=== PATIENT | female | born 1970 | race American Indian/Alaskan Native ===

== ENCOUNTER 2021-02-02 03:25 | Emergency (ER) | payer SELFPAY ==
[2021-02-02] MEDS ORDERED: oxyCODONE /ACETAMINOPHEN 5-325MG TAB PO ONE (06:21)
--- NOTE | 2021-02-02 06:27 | Emergency Department Report ---
ED ENT HPI - General Chief complaint: Dental/Oral Stated complaint: TOOTHACHE Time Seen by Provider: 02/02/21 06:18 Source: patient Mode of arrival: Ambulatory Limitations: No Limitations - History of Present Illness Initial comments: 50-year-old [place] female with past medical history of a significantly low tooth presents emerge department complaining of a spontaneous onset of dental pain. Pain is dull and throbbing worse with eating and palpation. There is no nausea, no vomiting, no fever, chills, sweats but no hemoptysis no hematemesis hematochezia, no odynophagia or dysphagia. No chest pain or palpitations. MD complaint: tooth pain -: Gradual Location: tooth # 1 - Significant erosion to this region with dental pain and is adjacent gingival erythema. Quality: dull Consistency: constant Improves with: none Worsens with: swallowing, eating, movement Associated Symptoms: gum swelling, toothache - Related Data Previous Rx's Medication Instructions Recorded Last Taken Type Amoxicillin [Amoxicillin TAB] 875 mg PO BID #20 tablet 02/02/21 Unknown Rx Chlorhexidine Mouthwash [Peridex] 15 ml MM BID #1 bottle 02/02/21 Unknown Rx Lidocaine Viscous 2% 5 ml MM Q3H PRN #120 udc 02/02/21 Unknown Rx Allergies Allergy/AdvReac Type Severity Reaction Status Date / Time No Known Allergies Allergy Unverified 02/02/21 03:53 ED Dental HPI - General Chief complaint: Dental/Oral Stated complaint: TOOTHACHE Time Seen by Provider: 02/02/21 06:18 Source: patient Mode of arrival: Ambulatory Limitations: No Limitations - Related Data Previous Rx's Medication Instructions Recorded Last Taken Type Amoxicillin [Amoxicillin TAB] 875 mg PO BID #20 tablet 02/02/21 Unknown Rx Chlorhexidine Mouthwash [Peridex] 15 ml MM BID #1 bottle 02/02/21 Unknown Rx Lidocaine Viscous 2% 5 ml MM Q3H PRN #120 udc 02/02/21 Unknown Rx Allergies Allergy/AdvReac Type Severity Reaction Status Date / Time No Known Allergies Allergy Unverified 02/02/21 03:53 ED Review of Systems ROS: Stated complaint: TOOTHACHE Other details as noted in HPI Comment: All other systems reviewed and negative ED Past Medical Hx - Past Medical History Previous Medical History?: No - Surgical History Past Surgical History?: No - Medications Home Medications: Home Medications Medication Instructions Recorded Confirmed Last Taken Type Amoxicillin [Amoxicillin TAB] 875 mg PO BID #20 tablet 02/02/21 Unknown Rx Chlorhexidine Mouthwash [Peridex] 15 ml MM BID #1 bottle 02/02/21 Unknown Rx Lidocaine Viscous 2% 5 ml MM Q3H PRN #120 udc 02/02/21 Unknown Rx ED Physical Exam - General Limitations: No Limitations General appearance: alert, in no apparent distress - Head Head exam: Present: atraumatic, normocephalic - Eye Eye exam: Present: normal appearance, PERRL, EOMI - ENT ENT exam: Present: normal exam, mucous membranes moist, TM's normal bilaterally, other (Airway patent tongue and uvula midline) - Expanded ENT Exam Expanded 1 - Dental Tenderness, Other (Significant in the dental erosion with some adjacent gingival erythema.) Throat exam: Negative: R peritonsillar mass, L peritonsillar mass - Neck Neck exam: Present: normal inspection - Respiratory Respiratory exam: Present: normal lung sounds bilaterally. Absent: respiratory distress, rhonchi, stridor, accessory muscle use, decreased breath sounds, prolonged expiratory - Cardiovascular Cardiovascular Exam: Present: regular rate, normal rhythm. Absent: systolic murmur, diastolic murmur, rubs, gallop - GI/Abdominal GI/Abdominal exam: Present: soft, normal bowel sounds. Absent: guarding, rebound - Extremities Exam Extremities exam: Present: normal inspection - Back Exam Back exam: Present: normal inspection - Neurological Exam Neurological exam: Present: alert, oriented X3 - Psychiatric Psychiatric exam: Present: normal affect, normal mood - Skin Skin exam: Present: warm, dry, intact, normal color. Absent: rash ED Course Vital Signs 02/02/21 03:49 Temperature 97.8 F Pulse Rate 77 Respiratory 18 Rate Blood Pressure 153/91 O2 Sat by Pulse 100 Oximetry Critical care attestation.: If time is entered above; I have spent that time in minutes in the direct care of this critically ill patient, excluding procedure time. ED Disposition Clinical Impression: Infected dental caries Disposition: HOME / SELF CARE / HOMELESS Is pt being admited?: No Does the pt Need Aspirin: No Condition: Stable Instructions: Dental Abscess, [id number], Preventive Dental Care, Adult, Dental Sealants Referrals: [facility] [Outside] - 3-5 Days
[2021-02-02 07:18] VITALS: BP 126/75
== END 2021-02-02 07:18 | disposition home or self-care (01) ==
LOC: ED 03:25
DX: K02.9 Dental caries, unspecified (principal); Z79.899 Other long term (current) drug therapy
CPT/HCPCS: 99282

== ENCOUNTER 2021-05-22 22:21 | Emergency (ER) | payer SELFPAY ==
[2021-05-22 22:36] VITALS: BP 142/94
[2021-05-23] MEDS ORDERED: IBUPROFEN 600 MG TAB PO ONE (01:59)
[2021-05-23] MEDS ORDERED: ACETAMINOPHEN 325 MG TAB PO ONE (01:59)
[2021-05-23 02:54] LABS: Hematocrit 35.8 % (30.3-42.9); Hemoglobin 11.8 gm/dl (10.1-14.3); Mean Corpuscular HGB Conc 33 % (30-34); Mean Corpuscular Volume 86 fl (79-97); Platelet Count 266 K/mm3 (140-440); Red Blood Count 4.15 M/mm3 (3.65-5.03); Red Cell Distribution Width 14.7 % (13.2-15.2)
[2021-05-23] MEDS ORDERED: medroxyPROGESTERone ACETATE 5 MG TAB PO ONE (02:59)
[2021-05-23 03:04] LABS: Alanine Aminotransferase 11 units/L (7-56); Albumin 4.5 g/dL (3.9-5); Blood Urea Nitrogen 8 mg/dL (7-17); Calcium 9.9 mg/dL (8.4-10.2); Hemolysis Index 0
[2021-05-23 03:43] LABS: BUN/Creatinine Ratio 20
[2021-05-23 04:23] LABS: Bilirubin,Urine NEG (Negative); Blood,Urine MOD (Negative); Color,Urine Yellow (Yellow); Mucus,Urine 1+ /HPF; Protein,Urine <15 mg/dL mg/dL (Negative); Urobilinogen,Urine < 2.0 mg/dL (<2.0)
--- NOTE | 2021-05-23 04:55 | Emergency Department Report ---
ED Female HPI - General Chief complaint: Vaginal Bleeding Stated complaint: HEAVY VAGINAL BLEEDING Source: EMS Mode of arrival: Stretcher Limitations: No Limitations - History of Present Illness Initial comments: Patient is a 50-year-old -Gabonese female with a history of chronic iron deficiency anemia and uterine fibroids with chronic menorrhagia presents to the ED with complaint of acute onset persistent suprapubic pain and heavy vaginal bleeding for the last 3 days. Patient states that part of in the ED she was a large blood clots and presented to the ED for evaluation. Patient states that she was supposed to have total hysterectomy about 10 years ago but did not have insurance or cardiology. Patient states that she also takes iron tablets daily but ran out of the medications about a week ago. Patient denies dizziness, syncope, fever, chills, chest pain, shortness of breath, nausea vomiting, dysuria, urine frequency urgency, headache, lightheadedness MD Complaint: vaginal bleeding, pelvic pain, other (Severe dysmenorrhea) -: Sudden, days(s) (3) Location: suprapubic, other (Vaginal) Radiation: non-radiating Severity: severe Severity scale (0 -10): 8 Quality: cramping, sharp Consistency: constant Improves with: none Worsens with: menstrual period Are you Now?: No Last Menstrual Period: 05/21/21 EDC: 02/25/22 Associated Symptoms: denies other symptoms, vaginal bleeding, abdominal pain (Suprapubic pain). denies: vaginal discharge, nausea/vomiting, fever/chills, headaches, loss of appetite, dysuria, rash, shortness of breath, syncope, weakness - Related Data Sexually active: Yes Previous Rx's Medication Instructions Recorded Last Taken Type Amoxicillin [Amoxicillin TAB] 875 mg PO BID #20 tablet 02/02/21 Unknown Rx Chlorhexidine Mouthwash [Peridex] 15 ml MM BID #1 bottle 02/02/21 Unknown Rx Lidocaine Viscous 2% 5 ml MM Q3H PRN #120 udc 02/02/21 Unknown Rx Ferrous Sulfate [Ferrous Sulfate 324 mg PO DAILY #60 tab 05/23/21 Unknown Rx 324 MG] Ibuprofen [Motrin] 600 mg PO Q8H PRN #30 tablet 05/23/21 Unknown Rx Ondansetron [Zofran Odt] 4 mg PO Q8HR PRN #20 tab.rapdis 05/23/21 Unknown Rx Allergies Allergy/AdvReac Type Severity Reaction Status Date / Time No Known Allergies Allergy Unverified 02/02/21 03:53 ED Review of Systems ROS: Stated complaint: HEAVY VAGINAL BLEEDING Other details as noted in HPI Constitutional: denies: chills, fever Eyes: denies: eye pain, eye discharge, vision change ENT: denies: ear pain, throat pain Respiratory: denies: cough, shortness of breath, wheezing Cardiovascular: denies: chest pain, palpitations Endocrine: no symptoms reported Gastrointestinal: abdominal pain (Suprapubic pain). denies: nausea, diarrhea Genitourinary: abnormal menses (Heavy vaginal bleeding). denies: urgency, dysuria, discharge Musculoskeletal: denies: back pain, joint swelling, arthralgia Skin: denies: rash, lesions Neurological: denies: headache, weakness, paresthesias Psychiatric: denies: anxiety, depression Hematological/Lymphatic: denies: easy bleeding, easy bruising ED Past Medical Hx - Social History Smoking Status: Current Every Day Smoker Substance Use Type: Alcohol - Medications Home Medications: Home Medications Medication Instructions Recorded Confirmed Last Taken Type Amoxicillin [Amoxicillin TAB] 875 mg PO BID #20 tablet 02/02/21 Unknown Rx Chlorhexidine Mouthwash [Peridex] 15 ml MM BID #1 bottle 02/02/21 Unknown Rx Lidocaine Viscous 2% 5 ml MM Q3H PRN #120 udc 02/02/21 Unknown Rx Ferrous Sulfate [Ferrous Sulfate 324 mg PO DAILY #60 tab 05/23/21 Unknown Rx 324 MG] Ibuprofen [Motrin] 600 mg PO Q8H PRN #30 tablet 05/23/21 Unknown Rx Ondansetron [Zofran Odt] 4 mg PO Q8HR PRN #20 tab.rapdis 05/23/21 Unknown Rx ED Physical Exam - General Limitations: No Limitations General appearance: alert, in no apparent distress - Head Head exam: Present: atraumatic, normocephalic, normal inspection - Eye Eye exam: Present: normal appearance, PERRL, EOMI Pupils: Present: normal accommodation - ENT ENT exam: Present: normal exam, normal orophraynx, mucous membranes moist, TM's normal bilaterally, normal external ear exam - Neck Neck exam: Present: normal inspection, full ROM - Respiratory Respiratory exam: Present: normal lung sounds bilaterally. Absent: respiratory distress, wheezes, rales, stridor, chest wall tenderness, accessory muscle use, prolonged expiratory - Cardiovascular Cardiovascular Exam: Present: regular rate, normal rhythm, normal heart sounds. Absent: systolic murmur, diastolic murmur, rubs, gallop - GI/Abdominal GI/Abdominal exam: Present: soft, tenderness (Palpable mild suprapubic tenderness), normal bowel sounds. Absent: guarding, rebound, hyperactive bowel sounds, hypoactive bowel sounds, organomegaly, mass - Bi-manual exam: Present: other (Pelvic exam deferred at this time, patient request) - Extremities Exam Extremities exam: Present: normal inspection, full ROM, normal capillary refill - Back Exam Back exam: Present: normal inspection, full ROM. Absent: tenderness, CVA tenderness (R), CVA tenderness (L), muscle spasm, paraspinal tenderness, vertebral tenderness - Neurological Exam Neurological exam: Present: alert, oriented X3, CN II-XII intact, normal gait, reflexes normal - Psychiatric Psychiatric exam: Present: normal affect, normal mood - Skin Skin exam: Present: warm, dry, intact, normal color. Absent: rash ED Course Vital Signs 05/22/21 05/23/21 22:32 02:28 Pulse Rate 86 Respiratory 18 16 Rate Blood Pressure 142/94 O2 Sat by Pulse 100 Oximetry ED Medical Decision Making - Lab Data Result diagrams: 05/23/21 02:06 05/23/21 02:06 - Medical Decision Making This is a 50-year-old -Gabonese female with a history of chronic iron deficiency anemia and uterine fibroids with chronic menorrhagia presents to the ED with complaint of acute onset persistent suprapubic pain and heavy vaginal bleeding for the last 3 days. Patient states that part of in the ED she was a large blood clots and presented to the ED for evaluation. Patient states that she was supposed to have total hysterectomy about 10 years ago but did not have insurance or cardiology. Patient states that she also takes iron tablets daily but ran out of the medications about a week ago. In the ED, patient is alert and oriented x3 and is not in any distress. Patient is hemodynamically stable. Patient was treated for pain in the ED. Lab test results were reviewed and are all nonactionable. On reevaluation, patient's pain is well controlled medication. Patient will discharge home on medications and advised to follow-up with her [facility] physician in 5 to 7 days for reevaluation or return to the ED immediately if symptoms get worse. - Differential Diagnosis Menorrhagia; anemia; UTI; severe dysmenorrhea; uterine fibroids Critical care attestation.: If time is entered above; I have spent that time in minutes in the direct care of this critically ill patient, excluding procedure time. ED Disposition Clinical Impression: Dysfunctional uterine bleeding, Menorrhagia, premenopausal Uterine fibroid Qualifiers: Uterine leiomyoma location: unspecified location Qualified Code(s): D25.9 - Leiomyoma of uterus, unspecified Disposition: HOME / SELF CARE / HOMELESS Is pt being admited?: No Does the pt Need Aspirin: No Condition: Stable Instructions: Uterine Fibroids, Aaxy-[id number]-[id number], Menorrhagia, [id number]-Igfd, Abnormal Uterine Bleeding, Imdr-[id number] Additional Instructions: All lab test results were reviewed and are all nonactionable. Therefore take medication with food, drink plenty fluids and follow-up with your [facility] physician in 7 to 10 days for reevaluation. Return to the ED immediately if symptoms get worse. Prescriptions: Ferrous Sulfate [Ferrous Sulfate 324 MG] 324 mg PO DAILY #60 tab Ibuprofen [Motrin] 600 mg PO Q8H PRN #30 tablet PRN Reason: Pain Ondansetron [Zofran Odt] 4 mg PO Q8HR PRN #20 tab.rapdis PRN Reason: Nausea Referrals: ONESIMO BABIN MD [Staff Physician] - 7-10 days Time of Disposition: 04:57 Print Language: LUXEMBOURGISH
== END 2021-05-23 05:32 | disposition home or self-care (01) ==
LOC: ED 22:21
DX: D25.9 Leiomyoma of uterus, unspecified (principal); N92.0 Excessive and frequent menstruation with regular cycle; N92.4 Excessive bleeding in the premenopausal period; F17.200 Nicotine dependence, unspecified, uncomplicated; Z72.89 Other problems related to lifestyle
CPT/HCPCS: 36415; 80053; 81001; 84702; 85027; 99283; 99284

== ENCOUNTER 2021-10-19 14:47 | Emergency (ER) | payer SELFPAY ==
--- NOTE | 2021-10-19 15:57 | Event Note ---
ED Screening Note ED Screening Note: SENT TO ER BY PCP HGB 6.4 CP/SOB/WEAKNESS HX UTERINE FIBROIDS TOLD TO GET HYSTERECTOMY 7 YEARS AGO AND DID NOT LMP 1 W AGO PMH ANXIETY DEPRESSION FIBROIDS TUBAL BENIGN BREAST TUMOR REMOVAL CHILD This initial assessment/diagnostic orders/clinical plan/treatment(s) is/are subject to change based on patients health status, clinical progression and re- assessment by fellow clinical providers in the ED. Further treatment and workup at subsequent clinical providers discretion. Patient/guardian urged not to elope from the ED as their condition may be serious if not clinically assessed and managed. Initial orders include: LABS EKG LIKELY RBC RO DEMAND ISCHEMIA
--- NOTE | 2021-10-19 16:12 | Emergency Department Report ---
ED General Adult HPI - General Chief complaint: Recheck/Abnormal Lab/Rx Stated complaint: BLD TRANSFUSION Time Seen by Provider: 10/19/21 16:02 Source: patient Mode of arrival: Ambulatory Limitations: No Limitations - History of Present Illness Initial comments: 50-year-old female with a past medical history of anemia, uterine fibroids, dysfunctional bleeding secondary to uterine fibroids, tubal ligation, anxiety, depression, and benign breast tumor removal as a child presents to the hospital with complaints of anemia. Patient states she has been having progressive worsening dyspnea on exertion, lightheadedness, and had a syncopal episode last night. Patient also experiencing cravings for ice and starch. She went to urgent care for evaluation and states her hemoglobin was 6.4 and therefore she was for to the ER for blood transfusion. Patient has not been taking iron tablets currently because she did not have a prescription and feels that the [id number] medication does not work. It was recommended that she had a hysterectomy 7 years ago but she did not have insurance therefore she was unable to follow-up for definitive treatment. Patient last had 7-day menstrual cycle that stopped 1 week ago. She does not currently have vaginal bleeding Severity scale (0 -10): 0 - Related Data Previous Rx's Medication Instructions Recorded Last Taken Type Ferrous Sulfate [Ferrous Sulfate 324 mg PO DAILY #30 tab 10/19/21 Unknown Rx 324 MG] Allergies Allergy/AdvReac Type Severity Reaction Status Date / Time No Known Allergies Allergy Verified 10/19/21 15:49 ED Review of Systems ROS: Stated complaint: BLD TRANSFUSION Other details as noted in HPI Comment: All other systems reviewed and negative ED Past Medical Hx - Social History Smoking Status: Current Every Day Smoker Substance Use Type: Alcohol - Medications Home Medications: Home Medications Medication Instructions Recorded Confirmed Last Taken Type Ferrous Sulfate [Ferrous Sulfate 324 mg PO DAILY #30 tab 10/19/21 Unknown Rx 324 MG] ED Physical Exam - General Limitations: No Limitations - Other Other exam information: Myeloma general: No acute distress Head: Atraumatic Eyes: normal appearance ENT: Moist mucous membranes Neck: Normal appearance, no midline tenderness Chest: Clear to auscultation bilaterally CV: Regular rate and rhythm Abdomen: Soft, normal bowel sounds, nontender, nondistended, no rebound or guarding Back: Normal inspection Extremity: Normal inspection, full range of motion Neuro: Alert O x 3, no facial asymmetry, speech clear, no gross motor sensory deficit Psych: Appropriate behavior Skin: No rash ED Course Vital Signs 10/19/21 10/19/21 10/19/21 15:44 16:45 18:39 Temperature 98.5 F Pulse Rate 99 H 70 Respiratory 16 13 Rate Blood Pressure Blood Pressure 133/88 [Right] O2 Sat by Pulse 100 100 100 Oximetry 10/19/21 10/19/21 10/19/21 18:40 18:45 18:46 Temperature 98.9 F 98.9 F Pulse Rate 71 67 74 Respiratory 13 12 12 Rate Blood Pressure 111/60 121/54 121/54 Blood Pressure [Right] O2 Sat by Pulse 100 100 100 Oximetry 10/19/21 10/19/21 10/19/21 18:51 19:00 19:25 Temperature 99.2 F 99.3 F 98.3 F Pulse Rate 82 76 75 Respiratory 16 15 12 Rate Blood Pressure 126/48 126/48 Blood Pressure 120/49 [Right] O2 Sat by Pulse 100 100 100 Oximetry 10/19/21 10/19/21 10/19/21 19:30 20:00 21:00 Temperature 98.3 F Pulse Rate 75 73 73 Respiratory 12 18 15 Rate Blood Pressure 119/70 108/62 Blood Pressure 120/49 [Right] O2 Sat by Pulse 100 100 100 Oximetry - Reevaluation(s) Reevaluation #1: 10/19/21 22:39 To manage evaluation the patient informed her hemoglobin and that we would need to believe her blood transfusion and discharged on iron pills. Patient initially seemed agreeable. Patient has asked to speak to me and I relayed the message to the nurse that she will be getting a repeat hemoglobin and hematocrit drawn 2 hours after completion of the blood transfusion which will be 10 PM. Since I tried to contact phlebotomy however it is currently shift change. Went to the bedside to address patient's concern. Patient is agitated that I have not been back in the room since her initial evaluation. She is also agitated that she was told that she need to provide a urine sample but she could not urinate and then complained about the bathroom being dirty. I informed her that I do not need a urine sample and I simply waiting for repeat H&H. She then asked what blood test that I performed her prior and informed that I performed a CBC and chemistries which she states does not know what that means. I then explained what the CBC and chemistries test for. She became frustrated because she felt as though I was not adequately explaining the blood work that was performed on her. She then states I did not care and she wants another doctor. She no longer wants to speak to me. Charge nurse Jazmin asked to intervene to determine if patient wants to continue ED management. ED Medical Decision Making - Lab Data Result diagrams: 10/19/21 23:14 10/19/21 16:32 Lab Results 10/19/21 10/19/21 10/19/21 Range/Units 16:32 16:32 16:32 WBC 8.8 (4.5-11.0) K/mm3 RBC 3.42 L (3.65-5.03) M/mm3 Hgb 6.0 L (10.1-14.3) gm/dl Hct 20.8 L (30.3-42.9) % MCV 61 L (79-97) fl MCH 17 L (28-32) pg MCHC 29 L (30-34) % RDW 19.6 H (13.2-15.2) % Plt Count 408 (140-440) K/mm3 PT 13.8 (12.2-14.9) Sec. INR 0.96 (0.87-1.13) APTT 28.3 (24.2-36.6) Sec. Sodium 142 (137-145) mmol/L Potassium 3.8 (3.6-5.0) mmol/L Chloride 103.5 (98-107) mmol/L Carbon Dioxide 27 (22-30) mmol/L Anion Gap 15 mmol/L BUN 11 (7-17) mg/dL Creatinine 0.5 L (0.6-1.2) mg/dL Estimated GFR > 60 ml/min BUN/Creatinine Ratio 22 % Glucose 138 H (65-100) mg/dL Calcium 9.4 (8.4-10.2) mg/dL Troponin T < 0.010 (0.00-0.029) ng/mL HCG, Qual (Negative) Blood Type Antibody Screen Crossmatch 10/19/21 10/19/21 10/19/21 Range/Units 16:32 16:32 23:14 WBC (4.5-11.0) K/mm3 RBC (3.65-5.03) M/mm3 Hgb 8.4 L (10.1-14.3) gm/dl Hct 27.4 L D (30.3-42.9) % MCV (79-97) fl MCH (28-32) pg MCHC (30-34) % RDW (13.2-15.2) % Plt Count (140-440) K/mm3 PT (12.2-14.9) Sec. INR (0.87-1.13) APTT (24.2-36.6) Sec. Sodium (137-145) mmol/L Potassium (3.6-5.0) mmol/L Chloride (98-107) mmol/L Carbon Dioxide (22-30) mmol/L Anion Gap mmol/L BUN (7-17) mg/dL Creatinine (0.6-1.2) mg/dL Estimated GFR ml/min BUN/Creatinine Ratio % Glucose (65-100) mg/dL Calcium (8.4-10.2) mg/dL Troponin T (0.00-0.029) ng/mL HCG, Qual Negative (Negative) Blood Type O POSITIVE Antibody Screen Negative Crossmatch See Detail - Medical Decision Making 50-year-old female with a history of anemia and menorrhagia secondary to uterine fibroids presents to the hospital with symptomatic anemia and syncopal episode last night. Patient provided 1 unit of PRBCs with repeat H&H showing improvement in hemoglobin. Patient will be placed on iron tablets. During ED stay patient became irate and refused further care by me, I reviewed with the charge nurse, and the Police Department and security was notified. Patient calmed down after police came to the bedside and was agreeable to repeat blood draw. I reviewed results and patient is stable for discharge. Copy of her lab results will be provided Critical Care Time: No Critical care attestation.: If time is entered above; I have spent that time in minutes in the direct care of this critically ill patient, excluding procedure time. ED Disposition Clinical Impression: Symptomatic anemia, History of uterine fibroid, History of menorrhagia Disposition: HOME / SELF CARE / HOMELESS Is pt being admited?: No Condition: Stable Instructions: Blood Transfusion, Adult, Care After, [id number]-[id number], Preventing Iron Deficiency Anemia, Adult Additional Instructions: You receive 1 unit of blood cells today for anemia. Your repeat hemoglobin shows improvement. You have been provided a copy of your lab results to take to your doctor for follow-up. You have been provided follow-up with your primary care doctor and a [facility] doctor. Follow-up with a [facility] doctor to discuss treatment options for your uterine fibroids. Return if symptoms worsen as indicated by your discharge instructions. Take the iron tablets as prescribed. Iron pills do cause constipation and you may require stool softeners. Take [id number] stool softeners as needed. Prescriptions: Ferrous Sulfate [Ferrous Sulfate 324 MG] 324 mg PO DAILY #30 tab Referrals: MIKE COLLINS MD [Staff Physician] - 3-5 Days (COTTON CLASSER MD) BERNADETTE RHOADES MD [Staff Physician] - 3-5 Days (Primary care doctor) [facility] [Provider Group] - 3-5 Days (Primary care clinic) Time of Disposition: 23:50
[2021-10-19 16:57] LABS: Hematocrit 20.8 % (30.3-42.9); Mean Corpuscular HGB Conc 29 % (30-34); Platelet Count 408 K/mm3 (140-440); Red Blood Count 3.42 M/mm3 (3.65-5.03); Red Cell Distribution Width 19.6 % (13.2-15.2)
[2021-10-19 17:00] LABS: Mean Corpuscular Volume 61 fl (79-97)
[2021-10-19 17:10] LABS: INR 0.96 (0.87-1.13); Partial Thromboplastin Time 28.3 Sec. (24.2-36.6)
[2021-10-19] MEDS ORDERED: SODIUM CHLORIDE 0.9% 500 ML 500 ML IV ONE (17:26)
[2021-10-19 17:38] LABS: Blood Urea Nitrogen 11 mg/dL (7-17); Calcium 9.4 mg/dL (8.4-10.2); Hemolysis Index 0
[2021-10-19 17:39] LABS: BUN/Creatinine Ratio 22
[2021-10-19 23:39] LABS: Hematocrit 27.4 % (30.3-42.9); Hemoglobin 8.4 gm/dl (10.1-14.3)
[2021-10-20 00:29] VITALS: BP 129/50
--- NOTE | 2021-10-20 13:36 | Electrocardiograph Report ---
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
== END 2021-10-20 00:05 | disposition home or self-care (01) ==
LOC: ED 14:47
DX: D64.9 Anemia, unspecified (principal); D25.9 Leiomyoma of uterus, unspecified; N92.0 Excessive and frequent menstruation with regular cycle; F17.200 Nicotine dependence, unspecified, uncomplicated; F10.20 Alcohol dependence, uncomplicated
CPT/HCPCS: 36415; 36430; 80048; 84484; 84703; 85014; 85018; 85027; 85610; 85730; 86850; 86900; 86901; 86920; 93005; 96360; 96361; 99283; J7040; P9016